=== PATIENT | male | born 2000 | race Two or more races ===

== ENCOUNTER 2024-12-06 21:33 | Inpatient (IN) | payer MEDICAID, OTHER ==
[~2024-12-06] VITALS: Ht 175.3 cm; Wt 94.6 kg
[2024-12-06 21:50] LABS: Hematocrit 46.0 % (41.0-53.0); Hemoglobin 15.9 g/dL (13.5-17.5); Mean Corpuscular Hemoglobin 31.8 pg (28.0-32.0); Mean Corpuscular Volume 91.9 fL (80.0-100.0); Nucleated Red Blood Cells % 0.0 %
--- NOTE | 2024-12-06 21:52 | ED.PDOC ---
History of Present Illness HPI Comments 24 y/o M presents with c/c nonradiating, left sided chest pain, palpitations, and anxiety. Patient endorses on sudden, atraumatic, and unprovoked onset of symptoms at around 1500, this afternoon. 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 Denies any shortness of breath, dizziness, lightheadedness. nausea, vomiting, or further associated symptoms. Only significant history of alcohol and tobacco cigarette use and a family history of AFib. Time Seen by MD: 21:40 Reviewed Notes: Nurses Notes, Medications, Allergies Allergies: Coded Allergies: NO KNOWN ALLERGIES (Unverified , 12/06/24) Information Source: Patient Mode of Arrival: Ambulatory Severity: Moderate Timing: Hours Duration: Since onset Prehospital treatment: None Past Medical History PAST MEDICAL HISTORY: Denies Surgical History: Denies all surgeries Family History Family History: Family hx of heart jay (AFib) Social History Smoker: Cigarettes Alcohol: Occasionally Drugs: Denies Drug Use Lives In: Home All Other Systems: Reviewed and Negative (Comprehensive systems review obtained and negative except for what is stated in the HPI.) Physical Exam General Appearance: No Apparent Distress, Normal HEENT: Normal ENT Inspection, Pharynx Normal, TMs Normal Neck: Full Range of Motion, Non-Tender, Normal, Normal Inspection Respiratory: Chest Non-Tender, Lungs Clear, No Accessory Muscle Use, No Respiratory Distress, Normal Breath Sounds Cardiovascular: No Edema, No JVD, No Murmur, No Gallop, Normal Peripheral Pulses, Tachycardia (regular rhythm) Breast Exam: Deferred Gastrointestinal: No Organomegaly, Non Tender, No Pulsatile Mass, Normal Bowel Sounds, Soft Genitalia: Deferred Pelvic: Deferred Rectal: Deferred Extremities: No calf tenderness, Normal capillary refill, Normal inspection, Normal range of motion, Non-tender, No pedal edema Musculoskeletal : Apperance: Normal Neurologic: Alert, 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 Was a procedure done?: No EKG EKG : Pulse Rate (adult): 113 [place]: Normal Cardiac Rhythm: ST Block: None Hypertrophy: None ST: Normal Differential Dx Considerations may include: [place], PE, ACS, URI, PNA, anxiety, angina, viral syndrome, among others X-Ray, Labs, Meds, VS Vital Signs Date Time Temp Pulse Resp B/P (MAP) Pulse Ox O2 Delivery O2 Flow Rate FiO2 12/06/24 21:52 113 12/06/24 21:42 113 12/06/24 21:40 99.4 106 16 142/85 (104) 96 99.4 Lab Test 12/06/24 22:27 12/06/24 21:39 Range/Units Troponin I High Sensitivity 367 *H 414 *H </=54 ng/L White Blood Count 13.5 H 4.4-10.8 10^3/uL Red Blood Count 5.00 4.5-5.90 10^6/uL Hemoglobin 15.9 13.5-17.5 g/dL Hematocrit 46.0 41.0-53.0 % Mean Corpuscular Volume 91.9 80.0-100.0 fL Mean Corpuscular Hemoglobin 31.8 28.0-32.0 pg Mean Corpuscular Hemoglobin Concent 34.6 32.0-36.0 g/dL Red Cell Distribution Width 13.1 11.8-14.3 % Platelet Count 308 140-450 10^3/uL Mean Platelet Volume 8.3 6.9-10.8 fL Neutrophils (%) (Auto) 80.7 H 37.0-80.0 % Lymphocytes (%) (Auto) 13.1 10.0-50.0 % Monocytes (%) (Auto) 5.1 0.0-12.0 % Eosinophils (%) (Auto) 0.2 0.0-7.0 % Basophils (%) (Auto) 0.9 0.0-2.0 % Neutrophils # (Auto) 10.9 H 1.6-8.6 10 ^3/uL Lymphocytes # (Auto) 1.8 0.4-5.4 10 ^3/uL Monocytes # (Auto) 0.7 0-1.3 10 ^3/uL Eosinophils # (Auto) 0 0-0.8 10 ^3/uL Basophils # (Auto) 0.1 0-0.2 10 ^3/uL Nucleated Red Blood Cells 0.0 % D-Dimer, Quantitative < 0.19 0.0-0.49 mg/L FEU Sodium Level 138 136-145 mmol/L Potassium Level 4.1 3.5-5.1 mmol/L Chloride Level 103 98-107 mmol/L Carbon Dioxide Level 22 20-31 mmol/L Anion Gap 13 5-15 Blood Urea Nitrogen 10 9-23 mg/dL Creatinine 0.86 0.700-1.30 mg/dL Glomerular Filtration Rate Calc 124 >90 mL/min BUN/Creatinine Ratio 11.6 10.0-20.0 Serum Glucose 103 74-106 mg/dL Calcium Level 11.0 H 8.7-10.4 mg/dL Total Bilirubin 0.5 0.2-1.0 mg/dL Aspartate Amino Transferase (AST) 29 13-40 U/L Alanine Aminotransferase (ALT) 27 7-40 U/L Alkaline Phosphatase 90 46-116 U/L Total Protein 7.8 5.7-8.2 g/dL Albumin 5.4 H 3.2-4.8 g/dL Time of 1ST Reevaluation: 22:10 Reevaluation 1ST: Unchanged Patient Education/Counseling: Diagnosis, Treatment, Need For Follow Up Family Education/Counseling: No Family Present SEPSIS Sepsis Screen Physician Orders Electrocardigram (12/06/24 22:37) Electrocardigram (12/07/24 00:37) Troponin-I Hs (12/07/24 00:37) Chest Portable (12/06/24 21:39) Vital Signs Date Time Temp Pulse Resp B/P (MAP) Pulse Ox O2 Delivery O2 Flow Rate FiO2 12/06/24 21:52 113 12/06/24 21:42 113 12/06/24 21:40 99.4 106 16 142/85 (104) 96 99.4 Laboratory Tests Test 12/06/24 21:39 White Blood Count 13.5 10^3/uL (4.4-10.8) H Departure 1 Departure Time of Disposition: 23:20 Impression: Primary Impression: Acute coronary syndrome Disposition: HOME / SELF CARE / HOMELESS Admit to: Tele Condition: Guarded Comments Left-Sided Chest Pain with Elevated Troponin Chief Complaint: Left-sided chest pain and palpitations History of Present Illness: Patient is a 24-year-old male who presents to the Emergency Department with complaints of left-sided dull chest pain and palpitations that have been inte rmittent for the past 7 hours. 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 The pain is described as dull in character. Patient denies any prior similar episodes. There are no clear exacerbating or alleviating factors identified. No associated symptoms such as shortness of breath, diaphoresis, nausea, or radiation of pain were specifically mentioned. Review of Systems: Cardiovascular: Positive for chest pain and palpitations. Constitutional: No fever, chills, or fatigue reported. Respiratory: No shortness of breath, cough, or wheezing reported. Gastrointestinal: No nausea, vomiting, or abdominal pain reported. All other systems: Deferred or unremarkable based on available information. 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 + smoker, + E[place]h Family History: No family history reported. 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 Physical Exam: Physical examination is unremarkable per documentation. Lab Results: CBC: WBC elevated at 13.5 (reference range typically 4.5-11.0 K/?L). Chemistry panel: Unremarkable. Cardiac enzymes: Initial troponin significantly elevated at 414 ng/L. Repeat troponin: Decreased to 367 ng/L. Imaging and Other Relevant Results: Chest X-ray: No acute pathology identified. Medical Decision Making: Summary Statement: 24-year-old male with acute onset of left-sided chest pain and palpitations, with significantly elevated troponin levels suggesting myocardial injury. Problem List: 1. Acute chest pain 2. Elevated troponin 3. Leukocytosis 4. Palpitations Differential Diagnosis: 1. Acute coronary syndrome/myocardial infarction 2. Myocarditis 3. Pericarditis 4. Stress-induced cardiomyopathy (Takotsubo) 5. Pulmonary embolism 6. Aortic dissection ED Course: Patient presented with chest pain and palpitations. Initial workup revealed significantly elevated troponin levels with mild improvement on repeat testing. Patient was administered aspirin in the ED. Given the concerning presentation of chest pain with markedly elevated troponin in a young male, decision was made to admit for further evaluation and management of acute coronary syndrome. Assessment and Plan: 1. Acute Coronary Syndrome: - Presentation of chest pain with significantly elevated troponin levels warrants admission for further cardiac evaluation - Initiated aspirin therapy in the ED - Admit to Cardiology service for continued monitoring and management - Plan for cardiac catheterization to evaluate for coronary artery disease - Additional cardiac medications to be initiated by admitting team as appropriate 2. Leukocytosis (WBC 13.5): - May be reactive to cardiac injury or represent underlying infection - Will monitor during admission 3. Disposition: - Admit to inpatient cardiology service - Discussed case and plan with accepting physician - Patient informed of assessment and plan Additional Notes: Patient admitted for acute coronary syndrome workup Billing Information: ICD-10: I21.9 - Acute myocardial infarction, unspecified ICD-10: R07.9 - Chest pain, unspecified ICD-10: R00.2 - Palpitations Critical Care Note Critical Care Time?: Yes (35 min-critical care time only) Critical care comment: Total critical care time: Approximately 36 minutes Due to a high probability of clinically significant, life threatening deterioration, the patient required my highest level of preparedness to intervene emergently and I personally spent this critical care time directly and personally managing the patient. This critical care time included obtaining a history; examining the patient; pulse oximetry; ordering and review of studies; arranging urgent treatment with development of a management plan; evaluation of patient's response to treatment; frequent reassessment; and, discussions with ot her providers. This critical care time was performed to assess and manage the high probability of imminent, life-threatening deterioration that could result in multi-organ failure. It was exclusive of separately billable procedures and treating other patients. Stability Stability form required: No Heart Score Heart Score: Heart Score Response (Comments) Value History Slightly Suspicious 0 EKG Normal 0 Age <45 0 Risk Factors 1 or 2 risk factors 1 Troponin Normal limit 0 Total 1 I personally scribed for HYACINTH CRUZ MD ([email or web address]) on 12/06/24 at 21:52. Electronically submitted by Sg Casey ([email or web address]). HYACINTH CRUZ MD Dec 06, 2024 21:52
--- NOTE | 2024-12-06 22:17 | DVH ---
CHEST RADIOGRAPH Indication: chest pain Technique: Single frontal view of the chest was obtained COMPARISON: None FINDINGS: Lines and Tubes: None Lungs: Clear Pleura: No effusion. No pneumothorax. Cardiomediastinal contours: Unremarkable Bones: Unremarkable IMPRESSION: 1. No acute disease.
[2024-12-06 22:22] LABS: Alanine Aminotransferase 27 U/L (7-40); Alkaline Phosphatase 90 U/L (46-116); Anion Gap 13 (5-15); BUN/Creatinine Ratio 11.6 (10.0-20.0); Bilirubin, Total 0.5 mg/dL (0.2-1.0); Blood Urea Nitrogen 10 mg/dL (9-23); Carbon Dioxide 22 mmol/L (20-31); Chloride 103 mmol/L (98-107); Glucose 103 mg/dL (74-106); Potassium 4.1 mmol/L (3.5-5.1); Sodium 138 mmol/L (136-145); Total Protein 7.8 g/dL (5.7-8.2)
[2024-12-06 22:23] LABS: Albumin 5.4 g/dL (3.2-4.8); Calcium 11.0 mg/dL (8.7-10.4)
--- NOTE | 2024-12-06 23:13 | ECG ---
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
--- NOTE | 2024-12-06 23:35 | ECG ---
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
[2024-12-07] VITALS (9 sets, daily range): BP systolic 114–136; BP diastolic 71–87; PULSE 50–73; RESP 16–20; TEMP 97.7–98; O2SAT 96–98
[2024-12-07] MEDS ORDERED: MORPHINE SULFATE INJ 2 MG/ml SYRG IV PRN (00:15)
[2024-12-07] MEDS ORDERED: NITROGLYCERIN 0.4 MG SL TAB SL PRN (00:15)
--- NOTE | 2024-12-07 01:33 | DVHHPRES ---
History of Present Illness Resident Creating Document: DANIEL CAMPUZANO RESIDENT History of Present Illness Temo Boykin, is a 24 yo male with past medical history of ADHD, who presented to the ED with the main complain of sudden onset of chest pain 8/10, substernal, pressure like, intermittent, that radiated to the left arm and shoulder, that lasted about 1 hour, and improved with rest. Associated with heart palpitations and heart racing feeling with same duration. The patient report this is first time episode. He denies fever, chills, nausea, diaphoresis, loss of consciousness, SOB, or other symptoms. The patient reported that he drank 12 beers 2 days before of the episode. The initial labs showed Troponins 414, 367, 357. WBC 13.5. The patient will admitted for further evaluation. Past Medical History Past Medical Hx: ADHD at 6yo, currently he does no take any medications. Past Surgical History: None Family History Afib in mother and grandmother Smoke: <1 pack per day Past Social History Social Hx: alcohol use: moderate, he drinks 12 beers every other weekend, Smoke: 1/2 pack per day, Marihuana: quit 2 years ago. Denies any other substances. Review of Systems Constitutional: No: Fever, Chills, Sweats, Weakness, Malaise, Other Eyes: No: Pain, Vision change, Conjunctivae inflammation, Eyelid inflammation, Other, Redness ENT: No: Ear pain, Ear discharge, Nose pain, Nose discharge, Nose congestion, Mouth pain, Mouth swelling, Throat pain, Throat swelling, Other Respiratory: No: Cough, Dry, Shortness of breath, SOB with excertion, Wheezing, Hemoptysis, Pleuritic Pain, Sputum, Wheezing, Other Cardiovascular: Chest Pain, Palpitations Gastrointestinal: No: Nausea, Vomiting, Abdominal Pain, Diarrhea, Constipation, Melena, Hematochezia, Other Genitourinary: No Dysuria, No Frequency, No Incontinence, No Hematuria, No Retention, No Other Musculoskeletal: No: other, neck pain, shoulder pain, arm pain, back pain, hand pain, leg pain, foot pain Skin: No: Rash, Lesions, Jaundice, Bruising, Other Neurological: No: Weakness, Numbness, Incoordination, Change in speech, Confusion, Seizures, Other Allergies: Coded Allergies: NO KNOWN ALLERGIES (Unverified , 12/06/24) Medications Current Medications Medications Dose Ordered Sig/Jewels Route Start Time Stop Time Status Last Admin Dose Admin Nitroglycerin 0.4 mg Q5MINP PRN SL 12/07/24 00:15 Morphine Sulfate 2 mg Q30M PRN IV 12/07/24 00:15 Exam Vital Signs Vital Signs Date Time Temp Pulse Resp B/P (MAP) Pulse Ox O2 Delivery O2 Flow Rate FiO2 12/06/24 23:10 80 12/06/24 21:40 99.4 16 142/85 (104) 96 99.4 General Appearance: Alert, Oriented X3, Cooperative HEENT: Atraumatic, PERRLA, EOMI, Mucous membr. moist/pink Respiratory: Clear to auscultation, Normal air movement Cardiovascular: Regular rate, Normal S1, Normal S2, Other Abdominal: Normal bowel sounds, Soft, No tenderness, No hepatospenomegaly, No masses Extremities: No clubbing, No cyanosis, No edema, Normal pulses, No tenderness/swelling Skin: No rashes, No breakdown, No significant lesion Neuro: Normal gait, Normal speech, Normal tone Psych/Mental Status: Mental status NL, Mood NL Labs/Xrays Labs Test 12/07/24 00:12 12/06/24 22:27 12/06/24 21:39 Range/Units Troponin I High Sensitivity 357 *H </=54 ng/L White Blood Count 13.5 H 4.4-10.8 10^3/uL Red Blood Count 5.00 4.5-5.90 10^6/uL Hemoglobin 15.9 13.5-17.5 g/dL Hematocrit 46.0 41.0-53.0 % Mean Corpuscular Volume 91.9 80.0-100.0 fL Mean Corpuscular Hemoglobin 31.8 28.0-32.0 pg Mean Corpuscular Hemoglobin Concent 34.6 32.0-36.0 g/dL Red Cell Distribution Width 13.1 11.8-14.3 % Platelet Count 308 140-450 10^3/uL Mean Platelet Volume 8.3 6.9-10.8 fL Neutrophils (%) (Auto) 80.7 H 37.0-80.0 % Lymphocytes (%) (Auto) 13.1 10.0-50.0 % Monocytes (%) (Auto) 5.1 0.0-12.0 % Eosinophils (%) (Auto) 0.2 0.0-7.0 % Basophils (%) (Auto) 0.9 0.0-2.0 % Neutrophils # (Auto) 10.9 H 1.6-8.6 10 ^3/uL Lymphocytes # (Auto) 1.8 0.4-5.4 10 ^3/uL Monocytes # (Auto) 0.7 0-1.3 10 ^3/uL Eosinophils # (Auto) 0 0-0.8 10 ^3/uL Basophils # (Auto) 0.1 0-0.2 10 ^3/uL Nucleated Red Blood Cells 0.0 % D-Dimer, Quantitative < 0.19 0.0-0.49 mg/L FEU Sodium Level 138 136-145 mmol/L Potassium Level 4.1 3.5-5.1 mmol/L Chloride Level 103 98-107 mmol/L Carbon Dioxide Level 22 20-31 mmol/L Anion Gap 13 5-15 Blood Urea Nitrogen 10 9-23 mg/dL Creatinine 0.86 0.700-1.30 mg/dL Glomerular Filtration Rate Calc 124 >90 mL/min BUN/Creatinine Ratio 11.6 10.0-20.0 Serum Glucose 103 74-106 mg/dL Calcium Level 11.0 H 8.7-10.4 mg/dL Total Bilirubin 0.5 0.2-1.0 mg/dL Aspartate Amino Transferase (AST) 29 13-40 U/L Alanine Aminotransferase (ALT) 27 7-40 U/L Alkaline Phosphatase 90 46-116 U/L B-Type Natriuretic Peptide 3.50 0-100 pg/mL Total Protein 7.8 5.7-8.2 g/dL Albumin 5.4 H 3.2-4.8 g/dL SEPSIS Sepsis Screen Date sepsis recognized/suspect: Dec 07, 2024 Time Sepsis recognized/suspect: 003 Recent Procedure: No On Antibiotic Therapy: No Respiratory Rate >20: No Heart Rate >90: Yes Temp<36 C (96.8 F) or >38.3 C: No SBP <90 or MAP <65 mmHG: No New Acute Mental Status Change: No Is the patient on CPAP, BIPAP,: No Physician Orders Electrocardigram (12/07/24 00:37) Chest Portable (12/06/24 21:39) Admit (12/07/24 00:05) Code Status (12/07/24 00:05) Vital Signs .PER UNIT PROTOCOL (12/07/24 00:05) Review Orders With Adm.Md (12/07/24 00:05) Notify Md Of Changes From Base (12/07/24 00:05) Advance Directive (12/07/24 00:05) Patient Condition (12/07/24 00:05) Allergies (12/07/24 00:05) Nitroglycerin Sublingual (Ntrostat Subli (12/07/24 00:15) Morphine Sulfate Injection (12/07/24 00:15) Stat Ekg For Chest Pain (12/07/24 00:05) Notify Md Of Changes From Base (12/07/24 00:05) Rn Orthopedic For 24 Hours (12/07/24 00:05) Emergency Dysrhythmia Protocol (12/07/24 00:05) Rhythm Strips Once Every Shift (12/07/24 00:05) Lipid Panel (12/07/24 00:08) * Cardiology Consult (12/07/24 00:08) Urine Dip (12/07/24 ) Drug Screen (12/07/24 00:08) * Cardiology Consult (12/07/24 00:19) Complete Blood Count (12/08/24 04:00) Basic Metabolic Panel (12/08/24 04:00) Education - Smoking Cessation (12/07/24 00:45) * Smoking Cessation Consult (12/07/24 00:45) * Local Area Network Systems Adminstrator Consult (12/07/24 00:45) Pantoprazole Tablet (Protonix Tablet) (12/07/24 06:00) Blood Alcohol (12/07/24 00:53) Magnesium (12/08/24 04:00) Free T4 (Free Thyroxine) (12/07/24 01:01) Hemoglobin A1c (12/07/24 01:01) Thyroid Stimulating Hormone (12/07/24 01:01) Thyroid Stimulating Hormone (12/07/24 00:34) Echo 2d Mode Cardiac Dop (12/07/24 00:34) Cardiac Diet-2gna,Lofat,Lochol (12/07/24 Breakfast) Enoxaparin Sodium (Lovenox) (12/07/24 01:15) Vital Signs Date Time Temp Pulse Resp B/P (MAP) Pulse Ox O2 Delivery O2 Flow Rate FiO2 12/06/24 23:10 80 12/06/24 21:52 113 12/06/24 21:42 113 12/06/24 21:40 99.4 106 16 142/85 (104) 96 99.4 Laboratory Tests Test 12/06/24 21:39 White Blood Count 13.5 10^3/uL (4.4-10.8) H Medications Medications Dose Ordered Sig/Jewels Route Start Time Stop Time Status Last Admin Dose Admin Aspirin 162 mg ONCE ONCE PO 12/06/24 22:45 12/06/24 22:46 DC 12/07/24 00:36 162 MG Reassessment Post Fluid Pulse Location: Radial Pulse Strength: Normal Capillary Refill Exam: < 3 seconds Skin Temperature: Warm Skin Moisture: Moist Skin Tugor: WNL Skin Color: WNL Fingernail Color: WNL Assessment/Plan Assessment/Plan #Chest pain, rule out ACS Troponins: 414, 367 EKG ECHO UDS BNP Lipid Panel Telemetry Cardiology consult #History ADHD #Obesity BMI 30.6 #Tobacco use Counseled patient on cessation of tobacco Cardiac diet DVT prophylaxis-not indicated patient ambulating PUD prophylaxis Protonix Goals of care discussed with the patient > 35 min. Discussed plan of care with Dr. Paz Code status: Full code PCP: No established yet. Plan discussed with: Patient, patients agrees with the plan. Plan discussed with: Patient My Orders Orders - DANIEL CAMPUZANO RESIDENT Procedure Category Date Status Time Admit ADMIT 12/07/24 Transmitted 00:05 Code Status CODE 12/07/24 Transmitted 00:05 Vital Signs [facility] 12/07/24 In Process 00:05 Review Orders With [facility] 12/07/24 In Process Adm. 00:05 Notify Of Changes [facility] 12/07/24 In Process From Base 00:05 Advance Directive [facility] 12/07/24 In Process 00:05 Patient Condition ORDERS 12/07/24 Transmitted 00:05 Allergies [facility] 12/07/24 In Process 00:05 Nitroglycerin [facility] 12/07/24 In Process Sublingual (Ntrostat 00:15 Morphine Sulfate [facility] 12/07/24 In Process Injection 00:15 Stat Ekg For Chest [facility] 12/07/24 In Process Pain 00:05 Notify Of Changes [facility] 12/07/24 In Process From Base 00:05 Rn Orthopedic For [facility] 12/07/24 In Process 24 Hours 00:05 Emergency Dysrhythmia [facility] 12/07/24 In Process Protocol 00:05 Rhythm Strips Once [facility] 12/07/24 In Process Every Shift 00:05 Lipid Panel LAB 12/07/24 In Process 00:08 * Cardiology Consult CONS 12/07/24 Transmitted 00:08 Urine Dip ED NURSING 12/07/24 Transmitted Drug Screen LAB 12/07/24 Logged 00:08 * Cardiology Consult CONS 12/07/24 Transmitted 00:19 Complete Blood Count LAB 12/08/24 Verified 04:00 Basic Metabolic Panel LAB 12/08/24 Verified 04:00 Thyroid Stimulating LAB 12/07/24 Logged Hormone 00:34 Echo 2d Mode Cardiac US 12/07/24 Logged DOP 00:34 Cardiac DIET 12/07/24 Transmitted Diet-2gna,Lofat,Lochol Breakfast Enoxaparin Sodium PHA 12/07/24 In Process (Lovenox) 01:15 Problem List: (1) Chest pain Common Visit Codes: [id number] INP/OBS CARE (HIGH) Secondary Visit Codes: [id number] CHNG SMOKING 3-10m, [id number] CARE PLAN 30 MINUTES DANIEL CAMPUZANO RESIDENT Dec 07, 2024 01:33
[2024-12-07 01:34] LABS: Triglycerides 58 mg/dL (< 150)
[2024-12-07 01:36] LABS: Cholesterol 154 mg/dL (< 200)
[2024-12-07 01:37] LABS: HDL Cholesterol 63 mg/dL (40-59)
[2024-12-07] MEDS: ENOXAPARIN SOD 40 MG/0.4 ML SYRINGE SC ONE (02:00)
[2024-12-07] MEDS: PANTOPRAZOLE 40 MG/10 ML VIAL INJ IV ONE (02:02)
[2024-12-07] MEDS: PANTOPRAZOLE 40 MG TAB PO SCH (06:44)
--- NOTE | 2024-12-07 10:22 | DVHINCON2 ---
Date Seen: Dec 07, 2024 Referring Physician MD Primitivo resident Reason for Consultation Chest pain History of Present Illness This is a 24-year-old male patient who presents to the emergency room with chief complaint of chest pain. 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 He describes it as unprovoked, intermittent, squeezing in nature, left-sided with radiation down his left arm. The patient reports he pulled over to the side of the road to calm himself down. He reports going back to work and eventually going home where he decided to lie down, but symptoms began again. He decided to come to the emergency room for further evaluation. Initial twelve lead electrocardiogram reveals sinus tachycardia with nonspecific ST segment changes to inferior leads. Initial troponin level of 414ng/L with down trend thereafter. Significant past medical history includes ADHD, alcohol use, and tobacco use. Past Medical History Past medical history reviewed. No other significant than mentioned above. Past Surgical History Denies any previous surgeries Family History: Diabetes mellitus FH: atrial fibrillation G8 MOTHER FH: thyroid disease Grandmother Family History Family history reviewed. Social History Patient admits to drinking approximately 8-12 beers every other night Patient smokes approximately half a pack per day Denies any illicit drug use Allergies: Coded Allergies: NO KNOWN ALLERGIES (Unverified , 12/06/24) Home Meds Denies taking any prescribed medications Current Medications Current Medications Medications (Trade) Dose Ordered Sig/Jewels Route PRN Reason Start Time Stop Time Status Last Admin Nitroglycerin (Ntrostat Sublingual) 0.4 mg Q5MINP PRN SL FOR CHEST PAIN 12/07/24 00:15 Morphine Sulfate 2 mg Q30M PRN IV FOR CHEST PAIN 12/07/24 00:15 Pantoprazole Sodium (Protonix Tablet) 40 mg DAILY@0600 PO 12/07/24 06:00 12/07/24 06:44 Review of Systems Constitutional: No symptom reported Ears, Nose, & Throat: No symptom reported Eyes: No symptom reported Neurological: No symptoms reported Pulmonary/Respiratory: No symptoms reported Cardiovascular: Chest pain Gastrointestinal: No symptom reported Genitourinary: No symptom reported Musculoskeletal: No symptom reported Skin: No symptom reported Psychiatric: No symptom reported Endocrine: No symptom reported Hematologic/Lymphatic: No symptom reported Vital Signs Vital Signs Date Time Temp Pulse Resp B/P (MAP) Pulse Ox O2 Delivery O2 Flow Rate FiO2 12/07/24 05:00 97.7 60 18 115/71 (86) 97 97.7 12/07/24 02:46 Room Air* 0 21 Physical Exam General Appearance: Cooperative. Well-developed. Well-nourished. No acute distress. Pulmonary/Respiratory: Clear, bilateral breaths sounds. Cardiovascular/Chest: Regular rate and rhythm. No murmurs, no JVD. Peripheral Pulses: 2+ Radial (R). 2+ Radial (L). 2+ Pedal (R). 2+ Pedal (L) Abdominal Exam: Normal bowel sounds. Ankle Exam: Negative ankle edema Lower extremities: Negative lower extremity edema Neuro/Mental Status: A/OX4, coherent. Thoughts/Psych: Normal thought pattern. Appropriate mood and affect. Good judgment and insight. Appearance: No acute distress. Skin Exam: Normal inspection. Normal color. Warm and dry. Labs/Diagnostic Data Labs Test 12/07/24 00:12 12/06/24 22:27 12/06/24 21:39 Range/Units Magnesium Level 2.1 1.6-2.6 mg/dL Troponin I High Sensitivity 357 *H </=54 ng/L Triglycerides Level 58 < 150 mg/dL Cholesterol Level 154 < 200 mg/dL LDL Cholesterol 82 < 100 mg/dL HDL Cholesterol 63 H 40-59 mg/dL White Blood Count 13.5 H 4.4-10.8 10^3/uL Red Blood Count 5.00 4.5-5.90 10^6/uL Hemoglobin 15.9 13.5-17.5 g/dL Hematocrit 46.0 41.0-53.0 % Mean Corpuscular Volume 91.9 80.0-100.0 fL Mean Corpuscular Hemoglobin 31.8 28.0-32.0 pg Mean Corpuscular Hemoglobin Concent 34.6 32.0-36.0 g/dL Red Cell Distribution Width 13.1 11.8-14.3 % Platelet Count 308 140-450 10^3/uL Mean Platelet Volume 8.3 6.9-10.8 fL Neutrophils (%) (Auto) 80.7 H 37.0-80.0 % Lymphocytes (%) (Auto) 13.1 10.0-50.0 % Monocytes (%) (Auto) 5.1 0.0-12.0 % Eosinophils (%) (Auto) 0.2 0.0-7.0 % Basophils (%) (Auto) 0.9 0.0-2.0 % Neutrophils # (Auto) 10.9 H 1.6-8.6 10 ^3/uL Lymphocytes # (Auto) 1.8 0.4-5.4 10 ^3/uL Monocytes # (Auto) 0.7 0-1.3 10 ^3/uL Eosinophils # (Auto) 0 0-0.8 10 ^3/uL Basophils # (Auto) 0.1 0-0.2 10 ^3/uL Nucleated Red Blood Cells 0.0 % D-Dimer, Quantitative < 0.19 0.0-0.49 mg/L FEU Sodium Level 138 136-145 mmol/L Potassium Level 4.1 3.5-5.1 mmol/L Chloride Level 103 98-107 mmol/L Carbon Dioxide Level 22 20-31 mmol/L Anion Gap 13 5-15 Blood Urea Nitrogen 10 9-23 mg/dL Creatinine 0.86 0.700-1.30 mg/dL Glomerular Filtration Rate Calc 124 >90 mL/min BUN/Creatinine Ratio 11.6 10.0-20.0 Serum Glucose 103 74-106 mg/dL Hemoglobin A1c 5.1 <5.7 % A1C Calcium Level 11.0 H 8.7-10.4 mg/dL Total Bilirubin 0.5 0.2-1.0 mg/dL Aspartate Amino Transferase (AST) 29 13-40 U/L Alanine Aminotransferase (ALT) 27 7-40 U/L Alkaline Phosphatase 90 46-116 U/L B-Type Natriuretic Peptide 3.50 0-100 pg/mL Total Protein 7.8 5.7-8.2 g/dL Albumin 5.4 H 3.2-4.8 g/dL Thyroid Stimulating Hormone (TSH) 0.57 0.55-4.78 uIU/mL Plasma/Serum Blood Alcohol 4.7 <10 mg/dL Assessment NSTEMI, rule out coronary ischemia ADHD Alcohol use Tobacco use Plan/Recommendation We will continue with the following plan/recommendations (Dr. Burgos): * Transthoracic echocardiogram reveals EF 65% * Chest pain protocol * LISSET score: 1 point * HEART score: 4 points (moderate score) * Nuclear stress test * Close Cardiac surveillance Patient seen and examined at bedside with . Given the patient's clinical presentation, elevated troponin level, and twelve lead electrocardiogram, the patient was offered a nuclear stress test for further workup. The patient will be scheduled for a nuclear stress test on 12/08/2024. Thank you for allowing us to care for this patient. Please call with any questions or concerns. Critical care time spent: 44 minutes This medical document was created using an electronic medical record system with voice recognition software and computerized dictation system. Although this document has been carefully reviewed, there might still be some phonetic and typographical errors. Occasional wrong-word or ``sound-alike substitutions may have occurred due to the inherent limitations of voice recognition software. These areas are purely typographical due to imperfections of the software programs and do not reflect any compromise in the patient's medical care. Please read the chart carefully and recognize, using context, where these substitutions have occurred. Plan discussed with: Patient NYHA Physical activity limitations: NA Date of Service: Dec 07, 2024 Billing Provider: MANUEL HARGROVE Cardiology Common Codes: [id number] INP/OBS CARE (High) Cardiology Consultation Codes: [id number] CONSULT <45MIN MANUEL HARGROVE Dec 07, 2024 10:22
[2024-12-07] MEDS: ATORVASTATIN 20 MG TAB PO ONE (11:17)
[2024-12-07 12:20] LABS: Urine Protein, UAD Negative (Negative)
[2024-12-07 12:36] LABS: Amphetamine Screen, Urine Neg (NEGATIVE); Barbiturate Scree,Urine Neg (NEGATIVE); Benzodiazephine Screen, Urine Neg (NEGATIVE); Cannabinoid Screen, Urine Neg (NEGATIVE); Cocaine Screen, Urine Neg (NEGATIVE); Opiate Scree,Urine Neg (NEGATIVE); Phencyclidine Screen, Urine Neg (NEGATIVE)
[2024-12-07 13:25] LABS: COVID19 ANTIGEN SOFIA FIA NEGATIVE (NEGATIVE)
--- NOTE | 2024-12-07 14:20 | DVHPNRES ---
Progress Note Date Seen: Dec 07, 2024 Resident Creating Document: MARINO LEVY Medical Necessity Reason Pt with a Central, PICC or Fol: No Subjective Review of Systems Patient is a [id number] with no significant past medical history who came in due to chest pain locarized to middle chest, describes it as squeezing-like pain, started 2 days ago, that radiates to the left arm and improve with rest. The pain is associated with palpitations. First time episode. Patient reported that he drank 12 beers 2 days ago. Serial Troponin were noted to be 414, 367, 357. Cardiology was consulted Past surgical history: ADHD at 13 years old, does not take any medications Home medications: None Past Hospitalization: None Social & Personal history: AFib in mother and maternal grandmother drank during 4 years, 4 times 1 week, 10 - 12 can. He smoked <1 pack a day Allergies: None Patient seen and examined at bedside. Patient is alert and oriented to time, place person and responding to all questions. Eyes: No Pain, No Vision change, No Conjunctivae inflammation, No Eyelid inflammation, No Other, No Redness ENT: No Ear pain, No Ear discharge, No Nose pain, No Nose discharge, No Nose congestion, No Mouth pain, No Mouth swelling, No Throat pain, No Throat swelling, No Other Cardiovascular: Chest Pain, Palpitations, No Orthopnea, No Paroxysmal No Dyspnea, No Edema, No Lt Headedness, No Other Respiratory: No Cough, No Dry, No Shortness of breath, No SOB with exertion, No Wheezing, No Hemoptysis, No Pleuritic Pain, No Sputum, No Other Gastrointestinal: No Nausea, No Vomiting, No Abdominal Pain, No Diarrhea, No Constipation, No Melena, No Hematochezia, No Other Genitourinary: No Dysuria, No Frequency, No Incontinence, No Hematuria, No Retention, No Other Musculoskeletal: No other, No neck pain, No shoulder pain, No arm pain, No back pain, No hand pain, No leg pain, No foot pain Skin: No Rash, No Lesions, No Jaundice, No Bruising, No Other Objective vital signs Vital Sign Date Time Temp Pulse Resp B/P (MAP) Pulse Ox O2 Delivery O2 Flow Rate FiO2 12/07/24 12:56 97.9 50 16 114/74 (87) 96 97.9 12/07/24 08:00 Room Air* 0 21 Total Intake and Output 12/06/24 12/06/24 12/07/24 15:00 23:00 07:00 Intake Total 400 ml Balance 400 ml medications Current Medications Medications Dose Ordered Sig/Jewels Route Start Time Stop Time Status Last Admin Dose Admin Nitroglycerin 0.4 mg Q5MINP PRN SL 12/07/24 00:15 Morphine Sulfate 2 mg Q30M PRN IV 12/07/24 00:15 Pantoprazole Sodium 40 mg DAILY@0600 PO 12/07/24 06:00 12/07/24 06:44 40 MG Atorvastatin Calcium 40 mg HS PO 12/08/24 22:00 Aspirin 81 mg DAILY PO 12/08/24 10:00 Examination General Appearance: Cooperative. Well developed. Well nourished. NAD Head Exam: Normal inspection Neck Exam: Normal inspection. Non-tender. Normal alignment Pulmonary/Respiratory: Chest non-tender. Clear bilateral breath sounds, no crackles, no wheezing. Cardiovascular/Chest: Regular rate and rhythm. No murmurs. No JVD. Peripheral Pulses: 2+ Radial (R). 2+ Radial (L). 2+ Pedal (R). 2+ Pedal (L) Abdominal Exam: Normal bowel sounds. Soft. normal abdomen, no visible veins, Nontender. No hepatospenomegaly. No masses Ankle Exam: Negative ankle edema Lower extremities: Negative lower extremity edema Neuro/Mental Status: A&O x4. Coherent. Thoughts/Psych: Normal thought pattern. Appropriate mood and affect. Good judgement and insight Skin Exam: Normal inspection. Normal color. Warm. Dry laboratory and microbiology Laboratory Tests 12/06/24 21:39 Test 12/06/24 21:39 Range/Units Serum Glucose 103 74-106 mg/dL Labs and/or images reviewed: Labs reviewed by me, Image(s) reviewed by me Problem List/Assessment/Plan Problem List/Assessment/Plan # Chest pain; NSTEMI Type 1 vs 2 - Serial Troponin were noted to be 414, 367, 357 - chest x-ray- No acute disease - ordered echocardiogram - cardiology onboard; scheduled for Cardiolite stress test tomorrow on 12/08/2024 # Possible alcohol use disorder - Social service consulted to provide resource - counseled patient extensively # obesity class 1 - counseled patient extensively about healthy diet and lifestyle activity PUD prophylaxis: protonix 40mg Goals of care: Full code, discussed for >16 minutes on 12/07/24 Plan discussed with patient Plan discussed with Dr. Law Plan discussed with: Patient, Other My Orders My Orders Orders - MARINO LEVY Procedure Category Date Status Time Sodium Chloride 0.9% PHA 12/07/24 In Process 12:45 Thiamine Tab PHA 12/08/24 In Process 10:00 Magnesium LAB 12/07/24 Logged 12:41 Lipid Panel LAB 12/07/24 Logged 12:41 Thyroid Stimulating LAB 12/07/24 Logged Hormone 12:41 Aspirin Tablet PHA 12/08/24 In Process 10:00 Date of Service: Dec 07, 2024 Billing Provider: ELVIRA LAW MD Common Visit Codes: [id number] INP/OBS CARE(HIGH) MARINO LEVY Dec 07, 2024 14:20 ROB HIGGINS RESIDENT Dec 07, 2024 18:54 ELVIRA LAW MD Dec 08, 2024 21:14
[2024-12-07] MEDS: SODIUM CHLORIDE 0.9% 500 ML IV ONE (14:28)
[2024-12-07] MEDS: THIAMINE HCL 100 MG TAB PO ONE (14:28)
--- NOTE | 2024-12-07 14:31 | DVHSR ---
APPROVED REPORT EXAM: Two-dimensional and M-mode echocardiogram with Doppler and color Doppler. Blood Pressure: 115/71 mmHg INDICATION Chest Pain RISK FACTORS Height: 5'9", Weight: 212 DIMENSIONS LVDd4.6 (3.8-5.7cm)LA (2D)4.3 (1.9-4.0cm)Aortic Root4.0 (2.0-3.7cm) LVDs3.2 (2.5-4.0cm)LA (MM) (1.9-4.0cm)Aortic Cusp Exc2.3 (1.5-2.0cm) EF (%) 60.0 (55-70%)Rt. Atrium4.0 (1.9-4.0cm)Asc. Aorta3.4 cm IVSd1.1 (0.7-1.1cm)RV (D)4.7 (1.8-2.4cm) PWd1.0 (0.7-1.1cm) Mitral Valve MitralMitral Stenosis E wave0.94m/sMV Mean GR.mmHg A wave0.57m/sMV Peak GR.mmHg E/A ratio1.62D MVAcm2 DECEL [id number] 1/2 Timems Aortic Valve Aortic ValveAortic Stenosis V11.20m/Maxwell Mean GR.3mmHg V21.10m/Maxwell Peak GR.5mmHg LVOT Diameter2.5 (1.8-2.4cm)Doppler AVA5.35cm2 Pulmonic Valve V20.74m/s Tricuspid Valve TR Velocity2.39m/s [id number] Conclusion lvef 65% normal RV function and size normal atria normal pericardium no severe valve abnormalities noted
[2024-12-07 15:32] LABS: Triglycerides 99.0 mg/dL (< 150)
[2024-12-07 15:33] LABS: Magnesium 2.1 mg/dL (1.6-2.6)
[2024-12-07 15:34] LABS: Cholesterol 139.0 mg/dL (< 200); HDL Cholesterol 55.0 mg/dL (40-59)
--- NOTE | 2024-12-07 16:28 | DVHINCON2 ---
Date of service: Dec 07, 2024 History of Present Illness This is a 24-year-old male patient who presents to the emergency room with chief complaint of chest pain. 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 He describes it as unprovoked, intermittent, squeezing in nature, left-sided with radiation down his left arm. The patient reports he pulled over to the side of the road to calm himself down. He reports going back to work and eventually going home where he decided to lie down, but symptoms began again. He decided to come to the emergency room for further evaluation. Initial twelve lead electrocardiogram reveals sinus tachycardia with nonspecific ST segment changes to inferior leads. Initial troponin level of 414ng/L with down trend thereafter. Significant past medical history includes ADHD, alcohol use, and tobacco use. Past Medical History Past Medical History Past medical history reviewed. No other significant than mentioned above. Past Surgical History Past Surgical History Denies any previous surgeries Family & Social History Family History: Diabetes mellitus FH: atrial fibrillation G8 MOTHER FH: thyroid disease Grandmother Family History Family history reviewed. Social History Patient admits to drinking approximately 8-12 beers every other night Patient smokes approximately half a pack per day Denies any illicit drug use Allergies and Medications Past Medical History reviewed Family History: Diabetes mellitus FH: atrial fibrillation G8 MOTHER FH: thyroid disease Grandmother Allergies: Coded Allergies: NO KNOWN ALLERGIES (Unverified , 12/06/24) Current Medications Current Medications Medications (Trade) Dose Ordered Sig/Jewels Route PRN Reason Start Time Stop Time Status Last Admin Nitroglycerin (Ntrostat Sublingual) 0.4 mg Q5MINP PRN SL FOR CHEST PAIN 12/07/24 00:15 Morphine Sulfate 2 mg Q30M PRN IV FOR CHEST PAIN 12/07/24 00:15 Pantoprazole Sodium (Protonix Tablet) 40 mg DAILY@0600 PO 12/07/24 06:00 12/07/24 06:44 Atorvastatin Calcium (Lipitor) 40 mg HS PO 12/08/24 22:00 Thiamine HCl 100 mg DAILY PO 12/08/24 10:00 12/07/24 13:42 DC Aspirin 81 mg DAILY PO 12/08/24 10:00 Review of Systems 10 pt ros otherwise negative Vital Signs Vital Signs Date Time Temp Pulse Resp B/P (MAP) Pulse Ox O2 Delivery O2 Flow Rate FiO2 12/07/24 12:56 97.9 50 16 114/74 (87) 96 97.9 12/07/24 08:00 Room Air* 0 21 Physical Exam nad s1 s2 rrr ctab soft nt/nd o edema Labs/Diagnostic Data Labs Test 12/07/24 14:31 12/07/24 11:40 12/07/24 10:30 12/07/24 00:12 Range/Units Magnesium Level 2.1 1.6-2.6 mg/dL Triglycerides Level 99 < 150 mg/dL Cholesterol Level 139 < 200 mg/dL LDL Cholesterol 69 < 100 mg/dL HDL Cholesterol 55 40-59 mg/dL Influenza Type A Antigen Negative Negative Influenza Type B Antigen Negative Negative SARS-CoV-2 Antigen (Rapid) Negative NEGATIVE Urine Color Colorless Yellow Urine Clarity Clear Clear Urine pH 7.5 5.0-9.0 Urine Specific Wheeler 1.007 1.001-1.035 Urine Protein Negative Negative Urine Ketones Negative Negative Urine Blood Negative Negative /uL Urine Nitrite Negative Negative Urine Bilirubin Negative Negative Urine Urobilinogen Normal Negative mg/dL Urine Leukocyte Esterase Negative Negative /uL Urine RBC None seen 0 - 3 /hpf Urine Microscopic WBC < 1 0-3 /HPF Urine Squamous Epithelial Cells None seen <5 /hpf Urine Bacteria None seen None Seen /hpf Urine Glucose Normal Normal mg/dL Urine Opiates Screen Neg NEGATIVE Urine Fentanyl Screen Neg NEGATIVE Urine Barbiturates Screen Neg NEGATIVE Urine Phencyclidine Screen Neg NEGATIVE Urine Amphetamines Screen Neg NEGATIVE Urine Benzodiazepines Screen Neg NEGATIVE Urine Cocaine Screen Neg NEGATIVE Urine Cannabinoids Screen Neg NEGATIVE Troponin I High Sensitivity 357 *H </=54 ng/L Thyroid Stimulating Hormone (TSH) 1.11 0.55-4.78 uIU/mL Test 12/06/24 21:39 Range/Units White Blood Count 13.5 H 4.4-10.8 10^3/uL Red Blood Count 5.00 4.5-5.90 10^6/uL Hemoglobin 15.9 13.5-17.5 g/dL Hematocrit 46.0 41.0-53.0 % Mean Corpuscular Volume 91.9 80.0-100.0 fL Mean Corpuscular Hemoglobin 31.8 28.0-32.0 pg Mean Corpuscular Hemoglobin Concent 34.6 32.0-36.0 g/dL Red Cell Distribution Width 13.1 11.8-14.3 % Platelet Count 308 140-450 10^3/uL Mean Platelet Volume 8.3 6.9-10.8 fL Neutrophils (%) (Auto) 80.7 H 37.0-80.0 % Lymphocytes (%) (Auto) 13.1 10.0-50.0 % Monocytes (%) (Auto) 5.1 0.0-12.0 % Eosinophils (%) (Auto) 0.2 0.0-7.0 % Basophils (%) (Auto) 0.9 0.0-2.0 % Neutrophils # (Auto) 10.9 H 1.6-8.6 10 ^3/uL Lymphocytes # (Auto) 1.8 0.4-5.4 10 ^3/uL Monocytes # (Auto) 0.7 0-1.3 10 ^3/uL Eosinophils # (Auto) 0 0-0.8 10 ^3/uL Basophils # (Auto) 0.1 0-0.2 10 ^3/uL Nucleated Red Blood Cells 0.0 % D-Dimer, Quantitative < 0.19 0.0-0.49 mg/L FEU Sodium Level 138 136-145 mmol/L Potassium Level 4.1 3.5-5.1 mmol/L Chloride Level 103 98-107 mmol/L Carbon Dioxide Level 22 20-31 mmol/L Anion Gap 13 5-15 Blood Urea Nitrogen 10 9-23 mg/dL Creatinine 0.86 0.700-1.30 mg/dL Glomerular Filtration Rate Calc 124 >90 mL/min BUN/Creatinine Ratio 11.6 10.0-20.0 Serum Glucose 103 74-106 mg/dL Hemoglobin A1c 5.1 <5.7 % A1C Calcium Level 11.0 H 8.7-10.4 mg/dL Total Bilirubin 0.5 0.2-1.0 mg/dL Aspartate Amino Transferase (AST) 29 13-40 U/L Alanine Aminotransferase (ALT) 27 7-40 U/L Alkaline Phosphatase 90 46-116 U/L B-Type Natriuretic Peptide 3.50 0-100 pg/mL Total Protein 7.8 5.7-8.2 g/dL Albumin 5.4 H 3.2-4.8 g/dL Free Thyroxine (T4) Calculated 1.59 0.89-1.76 ng/dL Plasma/Serum Blood Alcohol 4.7 <10 mg/dL Assessment acs tobacco etoh abuse obesity Plan/Recommendation echo is wnl bp is stable offered LHC vs stress mpi, pt wishes to proceed with stress no recent viral prodrome Plan discussed with: Patient GABY ANDREWS MD Dec 07, 2024 16:28
[2024-12-08 01:00] VITALS: BP 114/76; PULSE 50; RESP 15; TEMP 97.7; O2SAT 97
[2024-12-08 05:32] VITALS: BP 125/77; PULSE 54; RESP 16; TEMP 98.2; O2SAT 99
[2024-12-08 07:13] LABS: Anion Gap 9 (5-15); Carbon Dioxide 27 mmol/L (20-31); Chloride 105 mmol/L (98-107); Hematocrit 42.2 % (41.0-53.0); Hemoglobin 14.8 g/dL (13.5-17.5); Mean Corpuscular Hemoglobin 32.4 pg (28.0-32.0); Mean Corpuscular Volume 92.5 fL (80.0-100.0); Nucleated Red Blood Cells % 0.0 %; Potassium 4.2 mmol/L (3.5-5.1); Sodium 141 mmol/L (136-145)
[2024-12-08 07:19] LABS: BUN/Creatinine Ratio 10.3 (10.0-20.0); Glucose 89 mg/dL (74-106)
[2024-12-08 07:23] LABS: Blood Urea Nitrogen 9 mg/dL (9-23); Calcium 10.9 mg/dL (8.7-10.4)
[2024-12-08 08:00] VITALS: PULSE 58; PULSE 80; RESP 16; O2SAT 98
[2024-12-08 09:00] VITALS: BP 107/72; PULSE 63; RESP 17; TEMP 97.7; O2SAT 96
[2024-12-08] MEDS ORDERED: THIAMINE HCL 100 MG TAB PO SCH (10:00)
--- NOTE | 2024-12-08 11:24 | DVHCARD ---
Cardiology Stress Test [place] Treadmill Stress Test [place] Referring MD: CORETTA Hedrick Protocol: Arturo (with cardiolite) Reason for referral: Chest Pain Target heart Rate:@85%: 166 Percent MPHR: 196 METS: 10.1 Resting Heart rate: 82 Resting Blood Pressure: 130/78 Exercise Heart Rate: 179 Exercise Blood Pressure: 171/69 Reason for Termination of Test: Chest Pain Baseline EKG: Normal sinus rhythm with ST-T changes to septal leads Stress EKG: Sinus tachycardia Functional Capacity: Good Normal Heart Rate Response: Adequate Blood Pressure Response: Hypertensive Clinical response: Non-ischemic Arrhythmia?: No Cardiolite Injected?: Yes ST-T Changes: Non/Minimal Probability of Inducible Ische: Perfusion result pending Date of Service: Dec 08, 2024 Billing Provider: MANUEL HEDRICK Cardiology Common Codes: PROCEDURE ONLY Treadmill W/Cardiolite Nuclear: [id number], INTERP, RPT MANUEL HEDRICK Dec 08, 2024 11:24
--- NOTE | 2024-12-08 12:39 | DVHSR ---
APPROVED REPORT Exam: Nuclear Stress Test Indication: chest pain BMI: 0 Medical History Medical History: ADHD, alcohol and tobacco use, elevated troponins Stress Test Details Stress Test: Exercise stress testing was performed using a Arturo protocol. HR Resting HR: 82 bpmMax Heart Rate (APMHR): 196.929684 bpm Max HR Achieved: 179 bpmTarget HR (85% APMHR): 166.557969 bpm % of APMHR: 91.33 Recovery HR: 97 bpm BP Resting BP: 130/78 mmHg Recovery BP: 125/80 mmHg ECG Resting ECG: Clear Clinical Reason for Termination: Completed protocol Exercise duration: 9 min 0 sec Exercise capacity: 10.1 METs Stress ECG Conclusion lvef 68% no severe ischemia noted minor decreased counts on stres imagting, artifact clinical correlate NM EXAM: Myocardial Perfusion REST/STRESS Imaging Protocol: Rest Tc-99m/Stress Tc-99m 1 day Resting Data Rest SPECT myocardial perfusion imaging was performed in supine position 60 minutes following the int ravenous injection of 9.5 mCi of Tc-99m Sestamibi. Time of rest injection: 07:55 Date: 12/08/2024 Time of rest imagin:55 Date: 12/08/2024 Administration Route: IV Administration Site: Left Arm Exercise Stress At peak stress, the patient was injected intravenously with 31.4mCi of Tc-99m Sestamibi. Time of stress injection: 09:40 Date: 12/08/2024 Time of stress imagin:10 Date: 12/08/2024 Administration Route: IV Administration Site: Left Arm Gated Stress SPECT was performed 30 minutes after stress injection. The images were gated to evaluate regional wall motion and calculate left ventricular ejection fracti on. Stress only was performed in the Supine position. Nuclear Conclusion Nuclear Findings: negative for ischemia lvef 68% no severe ischemia noted minor decreased counts on stres imagting, artifact clinical correlate
[2024-12-08 12:57] VITALS: TEMP 36.5
--- NOTE | 2024-12-08 14:40 | DVHDSRES ---
Discharge Summary Date of Admission Resident Creating Document: MARINO LEVY RESIDENT Dec 07, 2024 at 00:05 Date of Discharge: Dec 08, 2024 Labs/Diagnostic Data: Laboratory Results Test 12/08/24 06:41 12/07/24 14:31 12/07/24 11:40 12/07/24 10:30 White Blood Count 7.5 10^3/uL (4.4-10.8) Red Blood Count 4.57 10^6/uL (4.5-5.90) Hemoglobin 14.8 g/dL (13.5-17.5) Hematocrit 42.2 % (41.0-53.0) Mean Corpuscular Volume 92.5 fL (80.0-100.0) Mean Corpuscular Hemoglobin 32.4 pg (28.0-32.0) Mean Corpuscular Hemoglobin Concent 35.0 g/dL (32.0-36.0) Red Cell Distribution Width 13.1 % (11.8-14.3) Platelet Count 214 10^3/uL (140-450) Mean Platelet Volume 8.5 fL (6.9-10.8) Neutrophils (%) (Auto) 62.3 % (37.0-80.0) Lymphocytes (%) (Auto) 25.3 % (10.0-50.0) Monocytes (%) (Auto) 9.3 % (0.0-12.0) Eosinophils (%) (Auto) 1.9 % (0.0-7.0) Basophils (%) (Auto) 1.2 % (0.0-2.0) Neutrophils # (Auto) 4.7 10 ^3/uL (1.6-8.6) Lymphocytes # (Auto) 1.9 10 ^3/uL (0.4-5.4) Monocytes # (Auto) 0.7 10 ^3/uL (0-1.3) Eosinophils # (Auto) 0.1 10 ^3/uL (0-0.8) Basophils # (Auto) 0.1 10 ^3/uL (0-0.2) Nucleated Red Blood Cells 0.0 % Sodium Level 141 mmol/L (136-145) Potassium Level 4.2 mmol/L (3.5-5.1) Chloride Level 105 mmol/L (98-107) Carbon Dioxide Level 27 mmol/L (20-31) Anion Gap 9 (5-15) Blood Urea Nitrogen 9 mg/dL (9-23) Creatinine 0.87 mg/dL (0.700-1.30) Glomerular Filtration Rate Calc 124 mL/min (>90) BUN/Creatinine Ratio 10.3 (10.0-20.0) Serum Glucose 89 mg/dL (74-106) Calcium Level 10.9 mg/dL (8.7-10.4) Magnesium Level 2.1 mg/dL (1.6-2.6) Triglycerides Level 99 mg/dL (< 150) Cholesterol Level 139 mg/dL (< 200) LDL Cholesterol 69 mg/dL (< 100) HDL Cholesterol 55 mg/dL (40-59) Influenza Type A Antigen Negative (Negative) Influenza Type B Antigen Negative (Negative) SARS-CoV-2 Antigen (Rapid) Negative (NEGATIVE) Urine Color Colorless (Yellow) Urine Clarity Clear (Clear) Urine pH 7.5 (5.0-9.0) Urine Specific [place] 1.007 (1.001-1.035) Urine Protein Negative (Negative) Urine Ketones Negative (Negative) Urine Blood Negative /uL (Negative) Urine Nitrite Negative (Negative) Urine Bilirubin Negative (Negative) Urine Urobilinogen Normal mg/dL (Negative) Urine Leukocyte Esterase Negative /uL (Negative) Urine RBC None seen /hpf (0 - 3) Urine Microscopic WBC < 1 /HPF (0-3) Urine Squamous Epithelial Cells None seen /hpf (<5) Urine Bacteria None seen /hpf (None Seen) Urine Glucose Normal mg/dL (Normal) Urine Opiates Screen Neg (NEGATIVE) Urine Fentanyl Screen Neg (NEGATIVE) Urine Barbiturates Screen Neg (NEGATIVE) Urine Phencyclidine Screen Neg (NEGATIVE) Urine Amphetamines Screen Neg (NEGATIVE) Urine Benzodiazepines Screen Neg (NEGATIVE) Urine Cocaine Screen Neg (NEGATIVE) Urine Cannabinoids Screen Neg (NEGATIVE) Test 12/07/24 00:12 12/06/24 21:39 Troponin I High Sensitivity 357 ng/L (</=54) Thyroid Stimulating Hormone (TSH) 1.11 uIU/mL (0.55-4.78) D-Dimer, Quantitative < 0.19 mg/L FEU (0.0-0.49) Hemoglobin A1c 5.1 % A1C (<5.7) Total Bilirubin 0.5 mg/dL (0.2-1.0) Aspartate Amino Transferase (AST) 29 U/L (13-40) Alanine Aminotransferase (ALT) 27 U/L (7-40) Alkaline Phosphatase 90 U/L (46-116) B-Type Natriuretic Peptide 3.50 pg/mL (0-100) Total Protein 7.8 g/dL (5.7-8.2) Albumin 5.4 g/dL (3.2-4.8) Free Thyroxine (T4) Calculated 1.59 ng/dL (0.89-1.76) Plasma/Serum Blood Alcohol 4.7 mg/dL (<10) Other Laboratory Tests 12/08/24 06:41 Brief Hx & Hospital Course: Patient is a [id number] with no significant past medical history who came in due to chest pain locarized to middle chest, describes it as squeezing-like pain, started 2 days ago, that radiates to the left arm and improve with rest. The pain is associated with palpitations. First time episode. Patient reported that he drank 12 beers 2 days ago. Serial Troponin were noted to be 414, 367, 357. Cardiology was consulted. Patient underwent a Cardiolite exercise stress test on 12/08/2024 which was negative for ischemia. The patient was instructed to continue with healthy diet and physical activity as well as follow-up with primary care doctor at his earliest convenience, patient demonstrated understanding. Resources for alcohol cessation were offered. His hospital course was uncomplicated. Examination General Appearance: Cooperative. Well developed. Well nourished. NAD Head Exam: Normal inspection Neck Exam: Normal inspection. Non-tender. Normal alignment Pulmonary/Respiratory: Chest non-tender. Clear bilateral breath sounds, no crackles, no wheezing. Cardiovascular/Chest: Regular rate and rhythm. No murmurs. No JVD. Peripheral Pulses: 2+ Radial (R). 2+ Radial (L). 2+ Pedal (R). 2+ Pedal (L) Abdominal Exam: Normal bowel sounds. Soft. normal abdomen, no visible veins, Nontender. No hepatospenomegaly. No masses Ankle Exam: Negative ankle edema Lower extremities: Negative lower extremity edema Neuro/Mental Status: A&O x4. Coherent. Thoughts/Psych: Normal thought pattern. Appropriate mood and affect. Good judgement and insight Skin Exam: Normal inspection. Normal color. Warm. Dry laboratory and microbiology Operations or Procedures Cardiology Stress Test [place] Treadmill Stress Test [place] Referring MD: CORETTA Hedrick Protocol: Arturo (with cardiolite) Reason for referral: Chest Pain Target heart Rate:@85%: 166 Percent MPHR: 196 METS: 10.1 Resting Heart rate: 82 Resting Blood Pressure: 130/78 Exercise Heart Rate: 179 Exercise Blood Pressure: 171/69 Reason for Termination of Test: Chest Pain Baseline EKG: Normal sinus rhythm with ST-T changes to septal leads Stress EKG: Sinus tachycardia Functional Capacity: Good Normal Heart Rate Response: Adequate Blood Pressure Response: Hypertensive Clinical response: Non-ischemic Arrhythmia?: No Cardiolite Injected?: Yes ST-T Changes: Non/Minimal Probability of Inducible Ische: Perfusion result pending Visit Coding Cardiology Date of Service: Dec 08, 2024 Billing Provider: MANUEL HEDRICK Cardiology Common Codes: PROCEDURE ONLY Treadmill W/Cardiolite Nuclear: [id number], [facility] - CHEST RADIOGRAPH Indication: chest pain Technique: Single frontal view of the chest was obtained COMPARISON: None FINDINGS: Lines and Tubes: None Lungs: Clear Pleura: No effusion. No pneumothorax. Cardiomediastinal contours: Unremarkable Bones: Unremarkable IMPRESSION: 1. No acute disease. - Exam: Nuclear Stress Test Indication: chest pain BMI: 0 Medical History Medical History: ADHD, alcohol and tobacco use, elevated troponins Stress Test Details Stress Test: Exercise stress testing was performed using a Arturo protocol. HR Resting HR: 82 bpm Max Heart Rate (APMHR): 196.798905 bpm Max HR Achieved: 179 bpm Target HR (85% APMHR): 166.122149 bpm % of APMHR: 91.33 Recovery HR: 97 bpm BP Resting BP: 130/78 mmHg Recovery BP: 125/80 mmHg ECG Resting ECG: Clear Clinical Reason for Termination: Completed protocol Exercise duration: 9 min 0 sec Exercise capacity: 10.1 METs Stress ECG Conclusion lvef 68% no severe ischemia noted minor decreased counts on stres imagting, artifact clinical correlate NM EXAM: Myocardial Perfusion REST/STRESS Imaging Protocol: Rest Tc-99m/Stress Tc-99m 1 day Resting Data Rest SPECT myocardial perfusion imaging was performed in supine position 60 minutes following the intravenous injection of 9.5 mCi of Tc-99m Sestamibi. Time of rest injection: 07:55 Date: 12/08/2024 Time of rest imagin:55 Date: 12/08/2024 Administration Route: IV Administration Site: Left Arm Exercise Stress At peak stress, the patient was injected intravenously with 31.4mCi of Tc-99m Sestamibi. Time of stress injection: 09:40 Date: 12/08/2024 Time of stress imagin:10 Date: 12/08/2024 Administration Route: IV Administration Site: Left Arm Gated Stress SPECT was performed 30 minutes after stress injection. The images were gated to evaluate regional wall motion and calculate left ventricular ejection fraction. Stress only was performed in the Supine position. Nuclear Conclusion Nuclear Findings: negative for ischemia lvef 68% no severe ischemia noted minor decreased counts on stres imagting, artifact clinical correlate SIGNED BY: GABY ANDREWS MD SIGNED DATE/TIME: 12/08/24 3923 Condition at Discharge: Stable (RN) Final Diagnosis/Problems List # Chest pain; ruled out NSTEMI 1 and 2; negative ischemia on stress test # Possible alcohol use disorder # obesity class 1 Discharge Disposition: Home Discharge Instruct/Medications Diet: Cardiac 2g Na,low cholest Activity: No Restrictions, As Tolerated Follow Up/Referral: please follow up with pcp in 1-2 weeks No Active Prescriptions or Reported Meds Discharge Statement: "Patient was advised to return to the ER or call 911 if any headaches, dizziness, shortness of breath, chest pain, abdominal pain, bleeding, fevers, or worsening of medical condition. Patient was counseled about treatment plan, medications, possible side effects, patientverbalized understanding. All questions were answered to the best of my ability. This discharge took greater then 30 minutes in planning, reviewing documentation, counseling the patient, and discussing with other team members." ASSESSMENT ASSESSMENT Assessment # Chest pain; ruled out NSTEMI 1 and 2; negative ischemia on stress test # Possible alcohol use disorder # obesity class 1 Date of Service: Dec 08, 2024 Billing Provider: ELVIRA DUTTA MD Common Visit Codes: 45529-XUZ/OBS DISCH DAY >30min MARINO LEVY RESIDENT Dec 08, 2024 14:40 ELVIRA DUTTA MD Dec 08, 2024 21:15
[2024-12-08] MEDS ORDERED: ATORVASTATIN 20 MG TAB PO SCH (22:00)
== END 2024-12-08 14:05 | disposition home or self-care (01) | DRG 243 ==
LOC: ER 21:33 → OVERFLOW 12-07 00:05 → TELE-CENTR 12-07 02:40
PROVIDERS: ADMIT Internal Medicine Geriatric Medicine; ATTEND Emergency Medicine
DX: K21.9 Gastro-esophageal reflux disease without esophagitis (principal); E66.811 Obesity, class 1; F10.10 Alcohol abuse, uncomplicated; Z68.30 Body mass index [BMI] 30.0-30.9, adult; F90.9 Attention-deficit hyperactivity disorder, unspecified type; Z20.822 Contact with and (suspected) exposure to COVID-19; F41.9 Anxiety disorder, unspecified; F17.210 Nicotine dependence, cigarettes, uncomplicated; Z83.3 Family history of diabetes mellitus
CPT/HCPCS: 36415; 71045; 78452; 80048; 80053; 80061; 80307; 80320; 81001; 83036; 83735; 83880; 84439; 84443; 84484; 85025; 85379; 87426; 87804; 93005; 93017; 93306; 99291; G0378; J2470